=== PATIENT | male | born 1990 | race Caucasian/White ===

== ENCOUNTER 2023-07-11 11:36 | Emergency (ER) | payer OTHER, SELFPAY ==
[2023-07-11 11:45] VITALS: BP 155/85
--- NOTE | 2023-07-11 12:26 | ED.GENMED ---
History of Present Illness
General
Chief Complaint: Abdominal Pain
Source: patient
Exam Limitations: none
Time Seen by Provider: 07/11/23 11:56
Nursing documentation reviewed up to this point in time: agreed with
Travel History
Have you had any contact with someone who has COVID-19?: No
Do you have any symptoms of coronavirus? Fever > 100 degrees, chills, cough, shortness of breath, sore throat, loss of taste or smell, muscle aches, or headache?: No
History of Present Illness
History of Present Illness:
Patient is a 33-year-old male who presents to the ER for evaluation of right-sided abdominal pain. Patient reports this started suddenly about an hour and a half ago. He was unable to sit still he reports it was awful pain. He reminds him of his
previous kidney stone. With his previous kidney stone he also did not have pain in his back. He denies any pain in his testicle. He did vomit here in the waiting room. He does feel the pain has subsided slightly presently. He denies any recent
illness fever chills. Denies any urinary frequency urgency or dysuria. Denies any injury.
Review of Systems
Review of Systems
Allergies reviewed?: Yes
All Other Systems: ROS reviewed and negative except as documented in HPI and ROS
Constitutional: Reports no symptoms; Denies fever, fatigue or chills
Respiratory: Reports no symptoms
Cardiac: Reports no symptoms
ABD/GI: Reports abdominal pain, nausea and vomiting; Denies diarrhea or constipated
Musculoskeletal: Reports no symptoms
Skin: Reports no symptoms
Neurological: Reports no symptoms
Hematologic/Lymphatic: Reports no symptoms
Psychiatric: Reports no symptoms
Phy Exam
General Physical Exam
General Presentation: no apparent distress
General age: appears stated age
General Skin: warm and dry
General Habitus: normal
General Mental: alert
General Hydration: appears well hydrated
Gastrointestinal Exam
Gastrointestinal Exam: normal bowel sounds, non tender and soft
Neurological Exam
Neurological Exam: alert and oriented x3
Musculoskeletal Exam
Musculoskeletal Exam: full ROM
Skin Exam
Skin Exam: normal color and warm/dry
Psychiatric Exam
Psychiatric Exam: normal mood/affect
Course
Orders/Labs/Results
Orders:
Orders
07/11/23 12:20
Alcohol Urgent
Complete Blood Count/With Diff Urgent
Comprehensive Metabolic Panel Urgent
Lipase Urgent
Urinalysis Reflex To Culture Urgent
Date Specimen was Collected: 07/11/23
Time Specimen was Collected: 11:49
Urine Microscopic Reflex Cult Urgent
07/11/23 12:33
CT Abd/pel Without Iv Or Oral Urgent
Comment:
Reason For Exam: right side pain
IV Insert/Care/Rem.- Treatment PRN
0.9% Sodium Chloride 1000 ml [Nss] 1,000 ml IV BOLUS
Ketorolac [Toradol] 15 mg IV NOW STA
Ondansetron Injectable [Zofran] 4 mg IV NOW STA
Abnormal Lab Results
07/11/23
12:20
Absolute Lymphs (auto) 0.9 L 10^3/uL
(1.2-3.4)
Immature Gran % 0.6 H %
(0-0.5)
Lymphocytes % 12.8 L %
(20.5-51.1)
Glucose 145 H mg/dl
(70-99)
Total Protein 8.4 H g/dl
(6.3-8.2)
Albumin 5.2 H g/dl
(3.5-5.0)
Urine Ketones 1+ A
(Negative)
Ur Occult Blood Reflex 4+ A
(Negative)
Leukocyte Esterase Rfl Trace A
(Negative)
Urine Bacteria (Reflex) Few A
(Negative)
07/11/23 12:20
05/23/24 12:20
Vital Signs
Initial and Last Documented VS:
Initial Vital Signs
Temp Pulse Resp BP Pulse Ox
96.7 F L 53 26 155/85 99
07/11/23 11:45 07/11/23 11:45 07/11/23 11:45 07/11/23 11:45 07/11/23 11:45
Last Documented Vital Signs
Temp Pulse Resp BP Pulse Ox
96.7 F L 53 26 155/85 99
07/11/23 11:45 07/11/23 11:45 07/11/23 11:45 07/11/23 11:45 07/11/23 11:45
MDM/Problems Addressed
Differential Diagnosis Includes:
Not limited to renal colic less likely UTI
MDM/Problems Addressed:
Patient is a 33-year-old male who present with right flank pain CAT scan shows a 6 mm stone at the right UPJ with mild hydropatient feeling much better. No fever normal kidney function .
No obvious urine infection. I did review this with urology Dr. Mccallum who does recommend Toradol Flomax and pain medication if needed will plan for discharge home on Flomax pain medication outpatient urology follow-up not limited to renal colic
*Radiology
Radiology exam reviewed: radiology read reviewed
*Pulse Oximetry
Patient hypoxic: no
*Critical Care Note
Total Time (30-74mins, 75-104mins- exclusive of procedures): Not Applicable
ED Attending Note
-
Portions of this chart may have been created with voice recognition software.� Occasional wrong word or��sound alike� substitutions may have occurred due to the inherent limitations of voice recognition software.
Discharge Plan
Departure
Patient Disposition: Home (Routine Discharge)
Date of Disposition: 07/11/23
Time of Disposition: 15:04
Patient with high blood pressure during this ER visit?: Yes
Covid-19: Not Applicable
Discharge Problem:
Renal colic on right side
Instructions: Renal Colic (DC)
Prescriptions:
New
tamsulosin [Flomax] 0.4 mg capsule
0.4 mg PO DAILY Qty: 7 0RF
ketorolac 10 mg tablet
10 mg PO Q8H PRN (Reason: Pain) Qty: 10 0RF
Rx Instructions:
maximum total duration of 5 days from all oral, intranasal, or parenteral formulations
hydrocodone-acetaminophen 5-325 mg tablet
1 tab PO Q6H PRN (Reason: Pain) Qty: 10 0RF
No Action
tamsulosin [Flomax] 0.4 mg capsule
0.4 mg PO DAILY Qty: 7 0RF
ondansetron 4 mg tablet,disintegrating
4 mg PO Q8H PRN (Reason: nausea and vomiting) Qty: 7 0RF
Referrals:
Chuck Mccallum MD [Active] -
NONE,* [Family Provider] -
Activity Restrictions/Additional Instructions:
As discussed stay well-hydrated. Prescriptions were sent to pharmacy. You may take Toradol 10 mg every 8 hours as needed for pain however if needed a stronger pain medication was sent to pharmacy take only as directed. No driving or alcohol while
taking the pain medication. That is a narcotic medication. That narcotic medication may cause constipation please [id number] Colace. Also in addition please take Flomax daily for the next 7 days. Strain urine. Follow-up with urology call
today or Saturday morning to make an appointment for soon as possible. Return to the ER if any worsening of symptoms of increased pain nausea vomiting fever chills.
Interventions
Interventions:
*Risk Screen - Suicide Last Done: 07/11/23 11:45
*General Assessment Last Done: 07/11/23 11:45
*Neglect/Abuse Screening Last Done: 07/11/23 11:45
YB-Koxmql-Bxnnnxsemg Assessment Last Done: 07/11/23 13:02
ED- Pulmonary Assessment Last Done: 07/11/23 13:02
Discharge Date and Time
Print Language: CYMRO
[2023-07-11 12:38] LABS: % Basophils 0.7 % (0-2); % Immature Granulocytes 0.6 % (0-0.5); % Lymphocytes 12.8 % (20.5-51.1); % Monocytes 6.3 % (1.7-9.3); % Neutrophils 74.6 % (42.2-75.2); Absolute Basophils 0.1 10^3/uL (0-0.2); Absolute Eosinophils 0.4 10^3/uL (0-0.7); Absolute Lymphocytes 0.9 10^3/uL (1.2-3.4); Absolute Monocytes 0.4 10^3/uL (0.1-0.6); Absolute Neutrophils 5.3 10^3/uL (1.4-6.5); Hematocrit 42.9 % (39.0-52.0); Hemoglobin 15.4 g/dL (13.0-18.0); Mean Corp Hgb Conc. 35.9 g/dL (33.0-37.0); Mean Corpuscular Hgb 30.3 pg (27.0-31.0); Mean Corpuscular Volume 84.4 fL (80.0-94.0); Nucleated Red Blood Cells % 0 % (-); Platelet Count 183 10^3/uL (130-400); Red Blood Cell Count 5.08 10^6/uL (4.70-6.10); Red Cell Dist. Width 12.3 % (11.5-14.5)
[2023-07-11 12:42] LABS: ALT (SGPT) 30 U/L (0-50); AST (SGOT) 31 U/L (17-59); Albumin 5.2 g/dl (3.5-5.0); Alkaline Phosphatase 64 U/L (38-126); Blood Urea Nitrogen 13 mg/dl (9-20); Calcium 10.2 mg/dl (8.4-10.2); Carbon Dioxide 22 mmol/L (22-30); Chloride 104 mmol/L (98-107); Glucose 145 mg/dl (70-99); Lipase 81 U/L (23-300); Potassium 3.8 mmol/L (3.5-5.1); Sodium 139 mmol/L (135-145); Total Bilirubin 1.3 mg/dl (0.2-1.3); Total Protein 8.4 g/dl (6.3-8.2); eGFR > 60.00
[2023-07-11 12:43] LABS: Alcohol None Detected
[2023-07-11] MEDS: NSS 1000 IV (12:57)
[2023-07-11] MEDS: ZOFRAN 4 MG IV (12:58)
[2023-07-11] MEDS: TORADOL 15 MG IV (12:58)
[2023-07-11 13:46] LABS: Urine Albumin Negative (Neg - Trace); Urine Bilirubin Negative (Negative); Urine Character Clear (Clear); Urine Color Yellow; Urine Glucose Negative (Negative); Urine Ketone 1+ (Negative); Urine Leukocyte Trace (Negative); Urine Nitrite Negative (Negative); Urine Occult Blood 4+ (Negative); Urine Urobilinogen Negative (Neg - 1+)
[2023-07-11 14:07] LABS: Urine Bacteria Few (Negative); Urine Mucus Few; Urine Squamous Cell 0-2 /LPF (Few)
[2023-07-11 14:08] LABS: Urine Calcium Oxalate Crystals Present; Urine Red Blood Cell 0-2 /HPF (0-2); Urine White Cell 0-2 /HPF (0-5)
== END 2023-07-11 15:19 | disposition home or self-care (01) ==
LOC: EMR 11:36
PROVIDERS: EMERGENCY PHYSICIAN Emergency Medicine
DX: R10.31 Right lower quadrant pain (principal); R11.2 Nausea with vomiting, unspecified; N13.2 Hydronephrosis with renal and ureteral calculous obstruction; R03.0 Elevated blood-pressure reading, without diagnosis of hypertension; Z87.442 Personal history of urinary calculi; Z88.4 Allergy status to anesthetic agent
CPT/HCPCS: 99284; 96374; 96375; 96361; 74176; 80053; 81003; 81015; 82077; 83690; 85025

== ENCOUNTER 2023-07-31 06:28 | Day surgery (SDC) | payer SELFPAY ==
[2023-07-31] VITALS (9 sets, daily range): BP systolic 142–184; BP diastolic 83–105; BMI 26.6
[2023-07-31] MEDS: NORMOSOL-R 1000 IV (12:44)
[2023-07-31] MEDS: Pyridium 200 MG PO (15:40)
[2023-07-31] MEDS: DILAUDID 0.5 MG IV ×2 (15:43→15:59)
== END 2023-07-31 16:53 | disposition home or self-care (01) ==
LOC: SDS 06:28
PROVIDERS: ATTENDING PHYSICIAN Specialist
DX: N20.1 Calculus of ureter (principal)
CPT/HCPCS: 52356; 74018; 76000; 82365; C1894; C2617